=== PATIENT | female | born 1965 | race Caucasian/White ===

== ENCOUNTER 2023-07-27 12:59 | Emergency (ER) | payer OTHER ==
[~2023-07-27] VITALS: Ht 162.6 cm; Wt 68.0 kg
[2023-07-27 12:59] VITALS: BP 120/72; PULSE 87; RESP 18; TEMP 97.8; O2SAT 100
[2023-07-27] MEDS ORDERED: BOOSTRIX IM ONE ×2 (13:30)
[2023-07-27 13:45] VITALS: BP 126/47; PULSE 87; RESP 18; O2SAT 97
== END 2023-07-27 14:08 | disposition home or self-care (01) ==
LOC: EDBD 12:59 → ER 12:59
DX: S62.92XA Unspecified fracture of left hand, initial encounter for closed fracture (principal); F12.90 Cannabis use, unspecified, uncomplicated; V89.2XXA Person injured in unspecified motor-vehicle accident, traffic, initial encounter; Y93.89 Activity, other specified; Y92.89 Other specified places as the place of occurrence of the external cause; Y99.8 Other external cause status
CPT/HCPCS: 90471; 90715; 99284; 73130-LT; 73590-RT